=== PATIENT | female | born 1970 | race American Indian/Alaskan Native ===

== ENCOUNTER 2016-12-30 10:45 | Outpatient (CLI) | payer BC ==
--- NOTE | 2016-12-30 14:20 | Mammography Report ---
BILATERAL DIGITAL SCREENING MAMMOGRAM with CAD: 12/30/16 10:45:00 CLINICAL: Baseline screening. FINDINGS: The breasts are almost entirely fatty. Segmental left lower inner duct ectasia requires additional imaging.No mass, architectural distortion or suspicious calcifications.The right breast is negative. IMPRESSION: Left segmental duct ectasia requiring further workup. BI-RADS CATEGORY: 0 -- Additional Imaging Evaluation Required RECOMMENDATION: Recall for a left breast ultrasound. ACR BI-RADS MAMMOGRAPHIC CODES: 0 = Needs additional imaging evaluation; 1 = Negative; 2 = Benign; 3 = Probably benign; 4 = Suspicious; 5 = Malignant; 6 = Known biopsy-proven malignancy COMMENT: 1. Dense breast tissue, i.e., adenosis, fibrocystic changes, etc., may obscure an underlying neoplasm. 2. Approximately 10% of cancers are not detected with mammography. 3. A negative mammography report should not delay biopsy if a clinically suspicious mass is present. COMMENT: Patient follow-up letters are generated via our [employer] application.
== END 2016-12-30 10:46 | disposition home or self-care (01) ==
LOC: SPVWC 10:45
PROVIDERS: ATTEND Internal Medicine
DX: Z12.31 Encounter for screening mammogram for malignant neoplasm of breast (principal)
CPT/HCPCS: 77067; G0202

== ENCOUNTER 2017-01-11 15:06 | Outpatient (CLI) | payer BC ==
--- NOTE | 2017-01-11 16:18 | Ultrasound Report ---
LEFT BREAST ULTRASOUND: 01/11/17 15:06:00 CLINICAL: Abnormal screening mammogram. COMPARISON: 12/30/16 mammogram. FINDINGS: Ultrasound of the left breast(including all four quadrants and the retroareolar area) was performed. Mild retroareolar duct ectasia with no intraductal mass is identified. A benign cyst at 12 o'clock 3 cm from the nipple measures 9 x 5 x 10 mm. It correlates with the mammographic density. No solid mass or shadowing. IMPRESSION: Benign 1 cm cyst at 12 o'clock 3 cm from the nipple. Mild benign retroareolar duct ectasia. BI-RADS 2 - - Benign RECOMMENDATION: Routine mammographic screening in one year.
== END 2017-01-11 15:07 | disposition home or self-care (01) ==
LOC: SPVWC 15:06
PROVIDERS: ATTEND Internal Medicine
DX: N60.02 Solitary cyst of left breast (principal); N60.42 Mammary duct ectasia of left breast

== ENCOUNTER 2021-05-07 08:19 | Outpatient (CLI) | payer BC ==
--- NOTE | 2021-05-07 10:29 | Mammography Report ---
BILATERAL DIGITAL DIAGNOSTIC MAMMOGRAM WITH CAD , 05/07/2021 RIGHT LIMITED BREAST ULTRASOUND CLINICAL INFORMATION / INDICATION: Patient presents with bloody right nipple discharge. TECHNIQUE: Digital bilateral mammographic imaging was performed. Magnification views were obtained. L imited ultrasound was performed. This examination was interpreted with the benefit of Computer-Aided Detection (CAD) analysis. COMPARISON: Prior mammogram 12/30/2016 FINDINGS: Breast Density: There are scattered areas of fibroglandular density. MAMMOGRAPHIC FINDINGS: No dominant mass, suspicious calcifications, or architectural distortion in th e left breast. There has been interval development of 5 cm area of ductal nodularity/focal asymmetry in the lower inner quadrant of the right breast, middle depth. The abnormal area spans a length of 5 cm. In the history of bloody right nipple discharge, findings are certainly concerning for malignancy . Ultrasound will be performed to find correlate for future biopsy. ULTRASOUND FINDINGS: Targeted ultrasound evaluation was performed of the area of interest. Sonograp hic evaluation of the lower inner quadrant was performed. There are a few solid irregular mass is meron ntified in the 6:00 position. The largest mass measures approximately 1 cm at 6:00, 5 cm from nipple. This mass is irregular in appearance and can be used for future target biopsy. Other similar nodules are seen in the 6:00 position as well as in the 3:00 position adjacent to the nipple. The 3:00 nodul e measures approximately 9 mm and is solid and irregular in appearance as well. IMPRESSION: Highly suggestive of malignancy. Abnormal findings in the lower inner quadrant of the rig ht breast, noted both mammographically and sonographically. There are several suspicious small masses in the right breast noted sonographically, any one of which can be used for ultrasound-guided biopsy to obtain diagnosis. Findings are concerning for breast malignancy. Follow up recommendation: Biopsy/surgical consultation BI-RADS Category 5: Highly Suggestive of Malignancy. A "normal" or negative report should not discourage follow up or biopsy of a clinically significant f inding. A written summary of these findings will be mailed to the patient. The patient will be entered into a mammography reporting system which will generate a reminder letter for the patient's next appointmen t at the appropriate interval. According to the [employer], yearly mammograms are recommended starting at age 40 and continuing as long as a woman is in good health. Breast MRI is recommended for women with an bruce roximately 20-25% or greater lifetime risk of breast cancer, including women with a strong family his tory of breast or ovarian cancer and women who have been treated for Hodgkin's disease. Signer Name: Lacey Cota MD Signed: 05/07/2021 10:24 AM Workstation Name: [id number]
== END 2021-05-07 08:20 | disposition home or self-care (01) ==
LOC: SPVWC 08:19
PROVIDERS: ATTEND Internal Medicine
DX: N63.41 Unspecified lump in right breast, subareolar (principal); N64.52 Nipple discharge
CPT/HCPCS: 77066

== ENCOUNTER 2021-05-14 08:08 | Outpatient (CLI) | payer BC ==
[2021-05-14] MEDS ORDERED: LIDOCAINE 1%/EPINEPHRINE 1:100,000 VIAL (20 ML) INFILTRATI ONE (09:04)
--- NOTE | 2021-05-14 10:07 | Mammography Report ---
ULTRASOUND GUIDED RIGHT BREAST BIOPSY, 05/14/2021 RIGHT DIAGNOSTIC MAMMOGRAM CLINICAL INFORMATION / INDICATION: POST US BX. COMPARISON: Breast ultrasound from 05/14/2021, 05/07/2021, and diagnostic mammogram from 05/07/2021 PROCEDURE: Risks, benefits, and indications to the procedure were discussed with the patient in detail, includin g bleeding, infection, hematoma formation, and inadequate tissue sampling. The patient agreed to proc eed with both verbal and written consent. A timeout procedure was performed with two patient identifi ers. The breast was prepped and draped in the usual sterile fashion. Lidocaine 1% was used for local anest hesia. Under direct ultrasound guidance, 3 14 gauge core samples were obtained of the right breast no dule located near the 5:00-6:00 position. A biopsy marker was then placed. Biopsy device was removed and hemostasis achieved with manual pressure. A sterile dressing was applied to the skin. The patient tolerated the procedure without difficulty. No complications were encountered. Postbiopsy instructions were discussed with the patient and given in writing. Specimens were sent to pathology. The patient was then sent for a confirmatory mammogram to demonstrate adequate clip positioning in th e area in question. IMPRESSION: 1. Technically successful ultrasound guided right breast biopsy. 2. Satisfactory positioning of the biopsy clip on the post procedure mammogram. Biopsy results are pending and will be reported in an addendum. Signer Name: Shan Concepcion MD Signed: 05/14/2021 10:02 AM Workstation Name: [id number]
--- NOTE | 2021-05-15 08:04 | Ultrasound Report ---
ULTRASOUND GUIDED RIGHT BREAST BIOPSY, 05/14/2021 RIGHT DIAGNOSTIC MAMMOGRAM CLINICAL INFORMATION / INDICATION: BLOODY DISCHARGE FROM BREAST. COMPARISON: Breast ultrasound from 05/14/2021, 05/07/2021, and diagnostic mammogram from 05/07/2021 PROCEDURE: Risks, benefits, and indications to the procedure were discussed with the patient in detail, includin g bleeding, infection, hematoma formation, and inadequate tissue sampling. The patient agreed to proc eed with both verbal and written consent. A timeout procedure was performed with two patient identifi ers. The breast was prepped and draped in the usual sterile fashion. Lidocaine 1% was used for local anest hesia. Under direct ultrasound guidance, 3 14 gauge core samples were obtained of the right breast no dule located near the 5:00-6:00 position. A biopsy marker was then placed. Biopsy device was removed and hemostasis achieved with manual pressure. A sterile dressing was applied to the skin. The patient tolerated the procedure without difficulty. No complications were encountered. Postbiopsy instructions were discussed with the patient and given in writing. Specimens were sent to pathology. The patient was then sent for a confirmatory mammogram to demonstrate adequate clip positioning in th e area in question. IMPRESSION: 1. Technically successful ultrasound guided right breast biopsy. 2. Satisfactory positioning of the biopsy clip on the post procedure mammogram. Biopsy results are pending and will be reported in an addendum. Signer Name: Shan Concepcion MD Signed: 05/15/2021 8:00 AM Workstation Name: [id number]
== END 2021-05-14 08:09 | disposition home or self-care (01) ==
LOC: US 08:08
PROVIDERS: ATTEND Surgery
DX: N63.14 Unspecified lump in the right breast, lower inner quadrant (principal); C50.211 Malignant neoplasm of upper-inner quadrant of right female breast; N64.89 Other specified disorders of breast; R92.2 Inconclusive mammogram; R92.8 Other abnormal and inconclusive findings on diagnostic imaging of breast; N60.01 Solitary cyst of right breast; Z17.0 Estrogen receptor positive status [ER+]
CPT/HCPCS: 19083; 77065; 88305; 88341; 88342; A4648

== ENCOUNTER 2021-06-04 08:58 | Outpatient (CLI) | payer BC ==
--- NOTE | 2021-06-04 10:00 | Ultrasound Report ---
ULTRASOUND BREAST RIGHT LIMITED, 06/04/2021 CLINICAL INFORMATION / INDICATION: BREAST CA C50.311. Patient has recent biopsy proven right breast c ancer and presents for further evaluation of possible enlarged right axillary lymph nodes. TECHNIQUE: Targeted ultrasound evaluation was performed of the area of interest. COMPARISON: Prior mammogram and right breast ultrasound 05/07/2021 FINDINGS: Targeted ultrasound of the right axilla reveals a few mildly prominent lymph nodes, the largest with cortical thickness measuring up to 5 mm. IMPRESSION: 1. Mildly prominent right axillary lymph nodes may be reactive or metastatic in this patient with rec ent biopsy proven right breast cancer. Ultrasound-guided biopsy could be performed as clinically florencia anted. Follow up recommendation: Surgical consultation with Dr. Pena is underway. BI-RADS Category 6: Known Biopsy-Proven Malignancy. A normal or "negative" report should not preclude biopsy or follow-up of a clinically suspicious find ing. Signer Name: Ana Maria Peters MD Signed: 06/04/2021 9:55 AM Workstation Name: [id number]
== END 2021-06-04 08:59 | disposition home or self-care (01) ==
LOC: SPVWC 08:58
PROVIDERS: ATTEND Surgery
DX: C50.311 Malignant neoplasm of lower-inner quadrant of right female breast (principal)

== ENCOUNTER 2021-07-01 08:47 | Outpatient (CLI) | payer BC ==
--- NOTE | 2021-07-01 12:49 | Ultrasound Report ---
Ultrasound of right axillary lymph node, 07/01/2021 INDICATION: Patient recently diagnosed with right breast carcinoma. We are asked to biopsy abnormal r ight axillary lymph nodes. Comparison. Comparison is with prior axillary ultrasound, 06/04/2021. FINDINGS: A successful timeout procedure was performed. Verbal and written consent was obtained from the patient. Using sterile technique and 1% lidocaine for local infiltrative anesthesia, a 14-gauge biopsy needle was used to sample a lymph node in the right axilla demonstrating cortical thickening. 3 core samples were obtained. A biopsy clip was placed in the lymph node. No complications were encountered. The pa tient tolerated the procedure well. IMPRESSION: Successful ultrasound guided biopsy of right axillary lymph node. Patient will continue t o follow with Dr. Pena. Signer Name: Lacey Cota MD Signed: 07/01/2021 12:45 PM Workstation Name: [id number]
== END 2021-07-01 08:48 | disposition home or self-care (01) ==
LOC: SPVWC 08:47
PROVIDERS: ATTEND Surgery
DX: C50.311 Malignant neoplasm of lower-inner quadrant of right female breast (principal)
CPT/HCPCS: 38505; 88305; 88342